=== PATIENT | female | born 1945 | race Caucasian/White ===

== ENCOUNTER 2018-01-21 13:45 | Observation (INO) | payer MEDICARE, BC ==
[~2018-01-21] VITALS: Ht 167.6 cm; Wt 69.2 kg
[2018-01-21 14:17] LABS: BASOPHILS % (AUTO) 0.3 % (0-1); EOSINOPHILS # (AUTO) 0.1 X10'3 (0-0.9); HEMATOCRIT 38.4 % (35.0-45.0); HEMOGLOBIN 13.4 g/dl (12.0-16.0); LYMPHOCYTES # (AUTO) 1.5 X10'3 (1.1-4.8); LYMPHOCYTES % (AUTO) 23.6 % (21-51); MEAN CORPUSCULAR HEMOGLOBIN 32.3 PG (27.0-31.0); MEAN CORPUSCULAR HGB CONC 34.8 % (33.0-36.5); MEAN CORPUSCULAR VOLUME 92.9 FL (78-98); MEAN PLATELET VOLUME 7.2 FL (7.4-10.4); MONOCYTES # (AUTO) 0.3 X10'3 (0-0.9); MONOCYTES % (AUTO) 4.6 % (2-12); NEUTROPHILS # (AUTO) 4.5 X10'3 (1.8-7.7); NEUTROPHILS % (AUTO) 70.5 % (42-75); PLATELET COUNT 298 X10'3 (140-440); RED BLOOD COUNT 4.14 X10'6 (4.20-5.60); RED CELL DISTRIBUTION WIDTH 13.2 % (11.5-14.5); WHITE BLOOD COUNT 6.4 X10'3 (4.5-11.0)
[2018-01-21 14:26] LABS: INR 0.9 INR; PARTIAL THROMBOPLASTIN TIME 25 SECONDS (22-32); PROTHROMBIN TIME 9.3 SECONDS (9.0-12.0)
[2018-01-21 14:32] LABS: ALANINE AMINOTRANSFERASE 19 U/L (12-78); ALBUMIN 3.7 G/DL (3.4-5.0); ALKALINE PHOSPHATASE 50 IU/L (46-116); ANION GAP 7 (8-16); ASPARTATE AMINO TRANSFERASE 21 U/L (10-37); BILIRUBIN,TOTAL 0.6 MG/DL (0.1-1.0); BLOOD UREA NITROGEN 15 MG/DL (7-18); BUN/CREATININE RATIO 22.7 (6.6-38.0); CALCIUM 8.8 MG/DL (8.5-10.1); CHLORIDE 105 MMOL/L (99-107); CREATININE 0.66 MG/DL (0.40-0.90); GLUCOSE 98 MG/DL (70-104); POTASSIUM 3.7 MMOL/L (3.5-5.1); SODIUM 143 MMOL/L (135-145); TOTAL CARBON DIOXIDE 31.1 MMOL/L (24-32); TOTAL PROTEIN 7.3 G/DL (6.4-8.2); eGFR 89 ML/MIN
[2018-01-21 14:35] LABS: TROPONIN I < 0.04 NG/ML (0.0-0.05)
[2018-01-21] MEDS ORDERED: aspirin 325mg tablet PO ONE (14:40)
[2018-01-21 14:52] LABS: CLARITY,URINE SLIGHTLY CLOUDY (Clear); COLOR,URINE YELLOW (Yellow); GLUCOSE, URINE NEGATIVE (Neg); KETONES,URINE NEGATIVE (Neg); LEUKOCYTE ESTERASE ,URINE TRACE (Neg); NITRITES, URINE NEGATIVE (Neg); OCCULT BLOOD,URINE NEGATIVE (Neg); PROTEIN,URINE NEGATIVE (Neg); UA COLLECTION TYPE CLN CATCH MIDSTREAM; UROBILINOGEN,URINE 0.2 E.U/dL (0.2-1.0)
[2018-01-21 14:59] LABS: BACTERIA,URINE 1+ /HPF (Neg); MUCUS STRANDS MODERATE /LPF (Neg); SQUAMOUS EPITHELIAL CELL,UR FEW /LPF (FEW)
[2018-01-21 15:00] LABS: CAL OXALATE CRYSTALS 4+ /HPF (NEGATIVE); RBC,URINE 0-2 /HPF (0-2); WBC,URINE 0-4 /HPF (0-4)
[2018-01-21 15:32] LABS: HEMOGLOBIN A1C 5.6 % (4.5-6.2)
[2018-01-21] MEDS: normal saline 1000ml 1,000 ML IV SCH (15:50)
[2018-01-21] MEDS ORDERED: ALPR-624 PO (16:42)
[2018-01-21] MEDS ORDERED: VENL75CA55 PO (16:42)
[2018-01-21 17:45] VITALS: BP 151/65
[2018-01-21] MEDS ORDERED: temazepam 15mg capsule PO PRN (21:50)
[2018-01-21 22:00] VITALS: BP 141/68
[2018-01-21] MEDS: ALPRAZolam 0.5mg tablet PO PRN (22:36)
[2018-01-22 02:00] VITALS: BP 112/50
[2018-01-22 05:00] VITALS: BP 135/69
[2018-01-22] MEDS: normal saline 1000ml 1,000 ML IV SCH (05:43)
[2018-01-22 06:27] LABS: CHOL/HDL RATIO 3.5 (0.00-4.99); CHOLESTEROL 183 MG/DL (0-200); HDL CHOLESTEROL 53 MG/DL (35-60); LDL CHOLESTEROL 115 MG/DL (50-100); TRIGLYCERIDES 107 MG/DL (20-135)
[2018-01-22] MEDS ORDERED: aspirin 325mg tablet PO SCH (08:00)
[2018-01-22] MEDS ORDERED: enoxaparin 40mg/0.4ml syringe SQ SCH (08:00)
[2018-01-22] MEDS: ALPRAZolam 0.5mg tablet PO PRN (09:53)
[2018-01-22 10:00] VITALS: BP 135/55
== END 2018-01-22 13:50 | disposition home or self-care (01) ==
LOC: ER 13:45 → ORTHO 4S 15:03
PROVIDERS: ADMIT Internal Medicine; ATTEND Internal Medicine
DX: R29.810 Facial weakness (principal); F41.9 Anxiety disorder, unspecified; F32.9 Major depressive disorder, single episode, unspecified
CPT/HCPCS: 36415; 70450; 70544; 70551; 71045; 80053; 80061; 81001; 82948; 83036; 84484; 85025; 85610; 85651; 85730; 87070; 87088; 92616; 93005; 93306; 93880; 96360; 96361; 96372; 97116; 97162; 97530; 99285; G0378; J1650; J7030

== ENCOUNTER 2019-12-05 17:48 | Emergency (ER) | payer MEDICARE, BC ==
[~2019-12-05] VITALS: Ht 170.2 cm; Wt 65.9 kg
[~2019-12-05 17:48] MED LIST: ALPR-624 PO; ONDA8TAB9 PO; VENL75CA55 PO
[2019-12-05 18:37] LABS: BASOPHILS % (AUTO) 0.2 % (0-1); EOSINOPHILS % (AUTO) 0.1 % (0-6); HEMATOCRIT 39.1 % (35.0-45.0); HEMOGLOBIN 12.9 g/dl (12.0-16.0); LYMPHOCYTES # (AUTO) 0.6 X10'3 (1.1-4.8); LYMPHOCYTES % (AUTO) 7.6 % (21-51); MEAN CORPUSCULAR HEMOGLOBIN 31.6 PG (27.0-31.0); MEAN CORPUSCULAR VOLUME 95.6 FL (78-98); MEAN PLATELET VOLUME 7.3 FL (7.4-10.4); MONOCYTES # (AUTO) 0.3 X10'3 (0-0.9); MONOCYTES % (AUTO) 3.1 % (2-12); NEUTROPHILS # (AUTO) 7.3 X10'3 (1.8-7.7); PLATELET COUNT 307 X10'3 (140-440); RED BLOOD COUNT 4.09 X10'6 (4.20-5.60); RED CELL DISTRIBUTION WIDTH 12.9 % (11.5-14.5); WHITE BLOOD COUNT 8.2 X10'3 (4.5-11.0)
[2019-12-05] MEDS ORDERED: LORazepam 1 MG tablet PO ONE (18:40)
[2019-12-05 18:46] LABS: ALANINE AMINOTRANSFERASE 20 U/L (12-78); ALBUMIN 3.8 G/DL (3.4-5.0); ALBUMIN/GLOBULIN RATIO 1.1 (1.1-1.5); ALKALINE PHOSPHATASE 44 IU/L (46-116); ANION GAP 8 (8-16); ASPARTATE AMINO TRANSFERASE 20 U/L (10-37); BILIRUBIN,TOTAL 0.9 MG/DL (0.1-1.0); BLOOD UREA NITROGEN 14 MG/DL (7-18); BUN/CREATININE RATIO 20.9 (6.6-38.0); CALCIUM 9.2 MG/DL (8.5-10.1); CHLORIDE 106 MMOL/L (99-107); CREATININE 0.67 MG/DL (0.40-0.90); GLUCOSE 132 MG/DL (70-104); POTASSIUM 3.8 MMOL/L (3.5-5.1); SODIUM 144 MMOL/L (135-145); TOTAL CARBON DIOXIDE 30.3 MMOL/L (24-32); TOTAL PROTEIN 7.4 G/DL (6.4-8.2); eGFR 87 ML/MIN
[2019-12-05 18:52] LABS: CLARITY,URINE CLEAR (Clear); COLOR,URINE YELLOW (Yellow); GLUCOSE, URINE NEGATIVE (Neg); KETONES,URINE 15 mg/dl (Neg); LEUKOCYTE ESTERASE ,URINE NEGATIVE (Neg); NITRITES, URINE NEGATIVE (Neg); OCCULT BLOOD,URINE TRACE-INTACT (Neg); PROTEIN,URINE NEGATIVE (Neg); UROBILINOGEN,URINE 0.2 E.U/dL (0.2-1.0)
[2019-12-05 18:54] LABS: UA COLLECTION TYPE STRAIGHT CATH
[2019-12-05 18:54] LABS: MAGNESIUM 1.9 MG/DL (1.5-2.4)
--- NOTE | 2019-12-05 18:58 | NUR ---
pt tremors decreased/stopped with warm blankets. Ativan held for now.
[2019-12-05 18:59] LABS: BACTERIA,URINE NONE SEEN /HPF (Neg); MUCUS STRANDS FEW /LPF (Neg); RBC,URINE 0-2 /HPF (0-2); SQUAMOUS EPITHELIAL CELL,UR FEW /LPF (FEW); WBC,URINE 0-4 /HPF (0-4)
[2019-12-05 20:47] VITALS: BP 163/87
== END 2019-12-05 20:49 | disposition home or self-care (01) ==
LOC: ER 17:49
DX: R25.1 Tremor, unspecified (principal); R07.89 Other chest pain; R11.10 Vomiting, unspecified; R10.9 Unspecified abdominal pain; F41.9 Anxiety disorder, unspecified; Z79.899 Other long term (current) drug therapy
CPT/HCPCS: 36415; 71045; 80053; 81001; 83735; 83880; 84484; 85025; 85610; 93005; 99285

== ENCOUNTER 2021-04-06 15:36 | Inpatient (IN) | payer MEDICARE, BC ==
[~2021-04-06] VITALS: Ht 152.4 cm; Wt 55.0 kg
[2021-04-06 16:21] LABS: BASOPHILS % (AUTO) 0.6 % (0-1); EOSINOPHILS % (AUTO) 0.9 % (0-6); HEMATOCRIT 35.1 % (35.0-45.0); HEMOGLOBIN 11.6 g/dl (12.0-16.0); LYMPHOCYTES # (AUTO) 1.5 X10'3 (1.1-4.8); LYMPHOCYTES % (AUTO) 30.6 % (21-51); MEAN CORPUSCULAR HEMOGLOBIN 32.9 PG (27.0-31.0); MEAN CORPUSCULAR HGB CONC 33.1 g/dL (33.0-36.5); MEAN CORPUSCULAR VOLUME 99.4 FL (78-98); MEAN PLATELET VOLUME 7.4 FL (7.4-10.4); MONOCYTES # (AUTO) 0.4 X10'3 (0-0.9); MONOCYTES % (AUTO) 8.9 % (2-12); PLATELET COUNT 246 X10'3 (140-440); RED BLOOD COUNT 3.53 X10'6 (4.20-5.60); RED CELL DISTRIBUTION WIDTH 14.2 % (11.5-14.5)
[2021-04-06 16:37] LABS: ALANINE AMINOTRANSFERASE 14 U/L (12-78); ALBUMIN 3.4 G/DL (3.4-5.0); ALBUMIN/GLOBULIN RATIO 1.1 (1.1-1.5); ALKALINE PHOSPHATASE 47 IU/L (46-116); ANION GAP 3 (8-16); ASPARTATE AMINO TRANSFERASE 16 U/L (10-37); BILIRUBIN,TOTAL 0.4 MG/DL (0.1-1.0); BLOOD UREA NITROGEN 16 MG/DL (7-18); BUN/CREATININE RATIO 23.2 (6.6-38.0); CALCIUM 8.3 MG/DL (8.5-10.1); CHLORIDE 108 MMOL/L (99-107); CREATININE 0.69 MG/DL (0.40-0.90); GLUCOSE 81 MG/DL (70-104); POTASSIUM 4.1 MMOL/L (3.5-5.1); SODIUM 144 MMOL/L (135-145); TOTAL CARBON DIOXIDE 32.7 MMOL/L (24-32); TOTAL PROTEIN 6.6 G/DL (6.4-8.2); eGFR 83 ML/MIN
[2021-04-06 16:40] LABS: CLARITY,URINE CLEAR (Clear); COLOR,URINE YELLOW (Yellow); GLUCOSE, URINE NEGATIVE (Neg); KETONES,URINE NEGATIVE (Neg); LEUKOCYTE ESTERASE ,URINE NEGATIVE (Neg); NITRITES, URINE NEGATIVE (Neg); OCCULT BLOOD,URINE NEGATIVE (Neg); PH,URINE 6.5 (4.8-8.0); PROTEIN,URINE NEGATIVE (Neg); UROBILINOGEN,URINE 0.2 E.U/dL (0.2-1.0)
[2021-04-06 16:45] LABS: UA COLLECTION TYPE STRAIGHT CATH
--- NOTE | 2021-04-06 16:45 | NUR ---
Pt attempts to get out of bed. She is confused. Needs frequent reminders to stay in bed.
[2021-04-06] MEDS ORDERED: AMLO2.5T5 PO (17:18)
[2021-04-06] MEDS ORDERED: VENL150C58 PO (17:18)
[2021-04-06] MEDS ORDERED: APIX5TAB3 PO (17:18)
[2021-04-06] MEDS ORDERED: OMEP-50 PO (17:18)
[2021-04-06] MEDS ORDERED: CARB1TAB23 PO (17:18)
[2021-04-06] MEDS ORDERED: CYAN500T71 PO (17:18)
[2021-04-06] MEDS ORDERED: magnesium hydroxide 30ml (MOM) UD suspension PO PRN (17:25)
[2021-04-06] MEDS ORDERED: ondansetron/PF 4mg/2ml inj IV PRN (17:25)
[2021-04-06] MEDS ORDERED: mag hydrox/Alum hydrox/simeth 30ml oral suspension PO PRN (17:25)
[2021-04-06] MEDS ORDERED: acetaminophen 325mg tablet PO PRN (17:25)
--- NOTE | 2021-04-06 18:30 | NUR ---
Pt frequently forgets her limitations and tries to get out of bed. She is a high fall risk.
--- NOTE | 2021-04-06 19:42 | NUR ---
Dr. Godinez notified of pt's risk of falling due to trying to get out of bed.
[2021-04-06] MEDS ORDERED: ALPRAZolam 0.5mg tablet PO PRN (19:45)
[2021-04-06] MEDS: carbidoba-levodopa 25-100mg tablet PO SCH (20:00)
[2021-04-06] MEDS: cyanocobalamin 500mcg tablet PO SCH (20:00)
[2021-04-06] MEDS: docusate sod 100mg capsule PO SCH (20:00)
[2021-04-06] MEDS: apixaban 5mg tablet PO SCH (20:01)
[2021-04-06] MEDS: pantoprazole 40mg Tablet.DR PO SCH (20:03)
[2021-04-06] MEDS: normal saline 1000ml 1,000 ML IV SCH (20:03)
--- NOTE | 2021-04-06 21:45 | NUR ---
UO via purwick suction device = 900ml.
--- NOTE | 2021-04-06 21:49 | NUR ---
Pt continues to attempt to get out of bed. Needs frequent reminders to stay in bed.
[2021-04-07] MEDS: normal saline 1000ml 1,000 ML IV SCH ×3 (03:25→23:46)
--- NOTE | 2021-04-07 06:29 | NUR ---
patient remains on soft wrist restraints, observed able to take off restraint, in view of RN. We will monitor.
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
[2021-04-07] MEDS ORDERED: enoxaparin 40mg/0.4ml syringe SUBCUT SCH (08:00)
[2021-04-07 08:53] LABS: BASOPHILS % (AUTO) 0.2 % (0-1); EOSINOPHILS # (AUTO) 0.1 X10'3 (0-0.9); EOSINOPHILS % (AUTO) 0.9 % (0-6); HEMATOCRIT 41.7 % (35.0-45.0); HEMOGLOBIN 14.2 g/dl (12.0-16.0); LYMPHOCYTES # (AUTO) 1.3 X10'3 (1.1-4.8); LYMPHOCYTES % (AUTO) 16.7 % (21-51); MEAN CORPUSCULAR HEMOGLOBIN 32.9 PG (27.0-31.0); MEAN CORPUSCULAR VOLUME 96.8 FL (78-98); MEAN PLATELET VOLUME 7.2 FL (7.4-10.4); MONOCYTES # (AUTO) 0.6 X10'3 (0-0.9); MONOCYTES % (AUTO) 8.4 % (2-12); NEUTROPHILS # (AUTO) 5.6 X10'3 (1.8-7.7); NEUTROPHILS % (AUTO) 73.8 % (42-75); PLATELET COUNT 287 X10'3 (140-440); RED BLOOD COUNT 4.31 X10'6 (4.20-5.60); RED CELL DISTRIBUTION WIDTH 13.7 % (11.5-14.5); WHITE BLOOD COUNT 7.6 X10'3 (4.5-11.0)
[2021-04-07] MEDS: venlafaxine XR 75mg capsule (Q24H) PO SCH (08:56)
[2021-04-07] MEDS: cyanocobalamin 500mcg tablet PO SCH ×2 (08:56→20:59)
[2021-04-07] MEDS: apixaban 5mg tablet PO SCH ×2 (08:56→20:59)
[2021-04-07] MEDS: docusate sod 100mg capsule PO SCH ×2 (08:56→20:42)
[2021-04-07] MEDS: pantoprazole 40mg Tablet.DR PO SCH ×2 (08:56→20:59)
[2021-04-07 08:57] LABS: ALBUMIN 3.9 G/DL (3.4-5.0); ANION GAP 9 (8-16); BLOOD UREA NITROGEN 14 MG/DL (7-18); BUN/CREATININE RATIO 20.3 (6.6-38.0); CALCIUM 9.1 MG/DL (8.5-10.1); CHLORIDE 103 MMOL/L (99-107); CREATININE 0.69 MG/DL (0.40-0.90); GLUCOSE 95 MG/DL (70-104); POTASSIUM 3.9 MMOL/L (3.5-5.1); SODIUM 142 MMOL/L (135-145); TOTAL CARBON DIOXIDE 30.4 MMOL/L (24-32); eGFR 83 ML/MIN
[2021-04-07] MEDS: carbidoba-levodopa 25-100mg tablet PO SCH ×3 (08:59→20:59)
[2021-04-07] MEDS: amLODIPine 2.5mg tablet PO SCH (08:59)
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
--- NOTE | 2021-04-07 09:09 | NUR ---
Restraints off during breakfast.
--- NOTE | 2021-04-07 09:11 | NUR ---
retraints off at this time.
--- NOTE | 2021-04-07 11:14 | NUR ---
remained off restraints,in view of RN.given warm blanket.We will monitor.
--- NOTE | 2021-04-07 11:49 | NUR ---
Dr. Moreno at bedside,ordered SW consult.paged SW.
--- NOTE | 2021-04-07 13:20 | NUR ---
Assisted patient in a hospital bed.
--- NOTE | 2021-04-07 13:51 | NUR ---
awaiting for lunch tray,called dietary.
--- NOTE | 2021-04-07 14:14 | NUR ---
BRAXTON SILVERIO AT BEDSIDE.
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
--- NOTE | 2021-04-07 15:54 | NUR ---
LUnch tray came very late even after calling dietary twice,pt able to feed self with some coaching.call light within reach.
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
--- NOTE | 2021-04-07 18:00 | NUR ---
assisted to bsc.
[2021-04-08] MEDS: docusate sod 100mg capsule PO SCH (08:00)
[2021-04-08 08:24] LABS: BASOPHILS % (AUTO) 0.3 % (0-1); EOSINOPHILS # (AUTO) 0.1 X10'3 (0-0.9); HEMATOCRIT 40.9 % (35.0-45.0); HEMOGLOBIN 13.7 g/dl (12.0-16.0); LYMPHOCYTES # (AUTO) 1.1 X10'3 (1.1-4.8); LYMPHOCYTES % (AUTO) 22.7 % (21-51); MEAN CORPUSCULAR HGB CONC 33.4 g/dL (33.0-36.5); MEAN CORPUSCULAR VOLUME 98.8 FL (78-98); MEAN PLATELET VOLUME 7.2 FL (7.4-10.4); MONOCYTES # (AUTO) 0.5 X10'3 (0-0.9); NEUTROPHILS # (AUTO) 3.3 X10'3 (1.8-7.7); PLATELET COUNT 255 X10'3 (140-440); RED BLOOD COUNT 4.14 X10'6 (4.20-5.60); RED CELL DISTRIBUTION WIDTH 14.3 % (11.5-14.5); WHITE BLOOD COUNT 4.9 X10'3 (4.5-11.0)
[2021-04-08 09:32] LABS: ALBUMIN 3.6 G/DL (3.4-5.0); ANION GAP 9 (8-16); BLOOD UREA NITROGEN 17 MG/DL (7-18); BUN/CREATININE RATIO 24.6 (6.6-38.0); CALCIUM 9.3 MG/DL (8.5-10.1); CHLORIDE 107 MMOL/L (99-107); CREATININE 0.69 MG/DL (0.40-0.90); GLUCOSE 93 MG/DL (70-104); POTASSIUM 3.9 MMOL/L (3.5-5.1); SODIUM 143 MMOL/L (135-145); TOTAL CARBON DIOXIDE 27.1 MMOL/L (24-32); eGFR 83 ML/MIN
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
[2021-04-08] MEDS: carbidoba-levodopa 25-100mg tablet PO SCH ×2 (09:37→14:42)
[2021-04-08] MEDS: pantoprazole 40mg Tablet.DR PO SCH (09:37)
[2021-04-08] MEDS: amLODIPine 2.5mg tablet PO SCH (09:37)
[2021-04-08] MEDS: venlafaxine XR 75mg capsule (Q24H) PO SCH (09:37)
[2021-04-08] MEDS: normal saline 1000ml 1,000 ML IV SCH (09:38)
[2021-04-08] MEDS: apixaban 5mg tablet PO SCH (09:46)
[2021-04-08] MEDS: cyanocobalamin 500mcg tablet PO SCH (09:46)
[2021-04-08 13:05] VITALS: BP 123/60
--- NOTE | 2021-04-08 13:11 | NUR ---
ATTEMPTED TO CALL PHONE NUMBER ON FILE FOR AND CHILD. NO ANSWER AND MESSAGE LEFT WITH . GUILLERMO PHONE IS DISCONNECTED.
--- NOTE | 2021-04-08 13:37 | NUR ---
SPOKE WITH PT , STATED LIVES [address]. WILL BE HERE AROUND [phone] TONIGHT.
--- NOTE | 2021-04-08 14:30 | NUR ---
pt yelling in room. stated she wants to leave. reminded she is waiting for and will be here at 1700. pt agrees to stay in bed. given new sheets.
--- NOTE | 2021-04-08 14:30 | NUR ---
PT GIVEN CLEAN MASK, PT REFUSES TO WEAR MASK.
--- NOTE | 2021-04-08 15:32 | NUR ---
pt sister here to help pt et ready for . was able to change out of hospital gown into clothes.
== END 2021-04-09 15:42 | disposition home or self-care (01) | DRG 72 ==
LOC: ER 15:36 → ED HOLD 17:27
PROVIDERS: ADMIT Family Medicine; ATTEND Family Medicine
DX: G93.40 Encephalopathy, unspecified (principal); G20 Parkinson's disease; F41.9 Anxiety disorder, unspecified; F02.80 Dementia in other diseases classified elsewhere, unspecified severity, without behavioral disturbance, psychotic disturbance, mood disturbance, and anxiety; F32.9 Major depressive disorder, single episode, unspecified; R53.1 Weakness
CPT/HCPCS: 36415; 70450; 71045; 80048; 80053; 81003; 85025; 85610; 87081; 93005; 99285; G0378; J7030